=== PATIENT | male | born 2000 | race Caucasian/White ===

== ENCOUNTER 2020-11-05 23:36 | Emergency (ER) | payer OTHER ==
[~2020-11-05 23:36] MED LIST: HYCODAN5 ML PO; VENTOLIN HFA IN18 GM INH; VIBRAMYCIN100 MG PO
== END 2020-11-06 01:44 | disposition home or self-care (01) ==
LOC: FER 23:36
DX: R21 Rash and other nonspecific skin eruption (principal)
CPT/HCPCS: 99282